=== PATIENT | female | born 1965 | race Caucasian/White ===

== ENCOUNTER 2024-07-04 17:49 | Emergency (ER) | payer OTHER ==
[~2024-07-04] VITALS: Ht 160 cm; Wt 77.3 kg
[2024-07-04 18:08] VITALS: TEMP 97
[2024-07-04 18:47] LABS: ALANINE AMINOTRANSFERASE 64 U/L (12-78); ALBUMIN 4.2 G/DL (3.4-5.0); ALBUMIN/GLOBULIN RATIO 0.9 (1.1-1.5); ALKALINE PHOSPHATASE 83 IU/L (46-116); ANION GAP 14 (8-16); ASPARTATE AMINO TRANSFERASE 67 U/L (10-37); BILIRUBIN,TOTAL 1.7 MG/DL (0.1-1.0); BLOOD UREA NITROGEN 13 MG/DL (7-18); BUN/CREATININE RATIO 16.5 (10.0-20.0); CALCIUM 9.3 MG/DL (8.5-10.1); CHLORIDE 97 MMOL/L (99-107); CREATININE 0.79 MG/DL (0.40-0.90); LIPASE 28 U/L (16-77); POTASSIUM 4.6 MMOL/L (3.5-5.1); SODIUM 134 MMOL/L (135-145); TOTAL CARBON DIOXIDE 23.4 MMOL/L (24-32); TOTAL PROTEIN 8.8 G/DL (6.4-8.2); eCRCL 63 ML/MIN; eGFR 74 ML/MIN
[2024-07-04 18:51] LABS: BASOPHILS % (AUTO) 0.1 % (0-1); EOSINOPHILS % (AUTO) 0 % (0-6); HEMATOCRIT 41.8 % (35.0-45.0); HEMOGLOBIN 14.5 g/dl (12.0-16.0); LYMPHOCYTES # (AUTO) 0.6 X10'3 (1.1-4.8); LYMPHOCYTES % (AUTO) 6.6 % (21-51); MEAN CORPUSCULAR HEMOGLOBIN 34.1 PG (27.0-31.0); MEAN CORPUSCULAR HGB CONC 34.6 g/dL (33.0-36.5); MEAN CORPUSCULAR VOLUME 98.6 FL (78-98); MEAN PLATELET VOLUME 9.2 FL (7.4-10.4); MONOCYTES # (AUTO) 0.4 X10'3 (0-0.9); NEUTROPHILS # (AUTO) 8.5 X10'3 (1.8-7.7); NEUTROPHILS % (AUTO) 89.3 % (42-75); PLATELET COUNT 130 X10'3 (140-440); RED BLOOD COUNT 4.24 X10'6 (4.20-5.60); RED CELL DISTRIBUTION WIDTH 14.3 % (11.5-14.5); WHITE BLOOD COUNT 9.5 X10'3 (4.5-11.0)
[2024-07-04 19:01] LABS: GLUCOSE 170 MG/DL (70-104)
[2024-07-04] MEDS ORDERED: iohexol 300mg/ml 100ml inj. ONE (19:12)
[2024-07-04] MEDS: normal saline 1000ml 1,000 ML IV ONE (19:19)
[2024-07-04 19:58] LABS: BILIRUBIN,URINE NEGATIVE (Neg); CLARITY,URINE SLIGHTLY CLOUDY (Clear); COLOR,URINE YELLOW (Yellow); GLUCOSE, URINE NEGATIVE (Neg); KETONES,URINE 15 mg/dl (Neg); LEUKOCYTE ESTERASE ,URINE NEGATIVE (Neg); NITRITES, URINE NEGATIVE (Neg); OCCULT BLOOD,URINE SMALL (Neg); PH,URINE 5.5 (4.8-8.0); PROTEIN,URINE NEGATIVE (Neg); UROBILINOGEN,URINE 0.2 E.U/dL (0.2-1.0)
[2024-07-04 19:59] LABS: URINE HCG NEGATIVE (NEG)
[2024-07-04 20:03] LABS: UA COLLECTION TYPE VOIDED
[2024-07-04 20:06] LABS: BACTERIA,URINE 2+ /HPF (Neg); RBC,URINE 0-2 /HPF (0-2); SQUAMOUS EPITHELIAL CELL,UR MANY /LPF (FEW); WBC,URINE 0-4 /HPF (0-4)
[2024-07-04] MEDS ORDERED: dexamethasone inj 6 MG in dextrose 5%-water 100 ML IV ONE (21:00)
[2024-07-04] MEDS ORDERED: dexamethasone sod phosphate 10mg/ml inj IV SCH (21:10)
[2024-07-04] MEDS: HYDROcodone/acetaminophen 5mg/325mg tablet PO ONE (21:23)
[2024-07-04] MEDS: levoFLOXACIN-Levaquin 500mg/D5 100 ML IV ONE (21:25)
[2024-07-04] MEDS: ondansetron/PF 4mg/2ml inj IV ONE (21:25)
[2024-07-04] MEDS: dexamethasone sod phosphate 10mg/ml inj IV ONE (21:26)
[2024-07-04] MEDS: dicyclomine 10mg/ml 2ml ampule IM ONE (21:31)
[2024-07-04] MEDS ORDERED: ONDA-245 PO (22:02)
[2024-07-04] MEDS ORDERED: DICY10CA88 PO (22:02)
[2024-07-04] MEDS ORDERED: HYDR-3965 PO (22:02)
[2024-07-04] MEDS ORDERED: PRED20TA PO (22:02)
[2024-07-04] MEDS ORDERED: LEVO-65 PO (22:02)
[2024-07-04 22:13] VITALS: BP 112/59; PULSE 102; RESP 16; O2SAT 95
== END 2024-07-04 22:47 | disposition home or self-care (01) ==
LOC: ER 17:51
DX: K52.9 Noninfective gastroenteritis and colitis, unspecified (principal)
CPT/HCPCS: 36415; 74177; 80053; 81001; 81025; 83690; 84145; 84484; 85025; 96361; 96365; 96372; 96375; 99285; J0500; J1100; J1956; J2405; J7030; Q9967